=== PATIENT | male | born 1970 | race Caucasian/White ===

== ENCOUNTER 2018-04-09 03:17 | Observation (INO) ==
[2018-04-09 03:43] LABS: Baso # (Auto) 0.2 th/mm3 (0.0-0.2); Baso % (Auto) 1.5 % (0.0-2.0); Eos # (Auto) 0.1 th/mm3 (0.0-0.4); Eos % (Auto) 0.8 % (0.0-4.0); Hematocrit 45.1 % (39.0-51.0); Hemoglobin 14.9 gm/dL (13.0-17.0); Lymph # (Auto) 1.8 th/mm3 (1.0-4.8); Lymph % (Auto) 13.1 % (9.0-44.0); Mean Corpuscular HGB Conc 32.9 % (32.0-36.0); Mean Corpuscular Hemoglobin 28.9 pg (27.0-34.0); Mean Corpuscular Volume 87.8 fL (80.0-100.0); Mean Platelet Volume 9.3 fL (7.0-11.0); Mono # (Auto) 0.7 th/mm3 (0.0-0.9); Mono % (Auto) 5.1 % (0.0-8.0); Neut # (Auto) 10.6 th/mm3 (1.8-7.7); Neut % (Auto) 79.5 % (16.0-70.0); Platelet Count 250 th/mm3 (150-450); Red Blood Count 5.14 mil/mm3 (4.50-5.90); Red Cell Distribution Width 14.3 % (11.6-17.2); White Blood Count 13.4 th/mm3 (4.0-11.0)
--- NOTE | 2018-04-09 03:46 | ED ---
HPI General Chief Complaint: Dizziness Stated Complaint: Dizziness Time Seen by Provider: 04/09/18 03:30 Source: patient Mode of arrival: EMS Limitations: no limitations History of Present Illness HPI Narrative: Patient is a 48-year-old male with history of hypertension, hyperlipidemia, CHF, presents the emergency room with complaints of dizziness. Patient reports that [place] the [place] was [place] the game. Patient reports that he did not feel right and wanted to go home, reports that he walked outside and sat on the bench and had a syncopal episode. When patient awoke, patient reports that he felt as if he was unconscious for about 8 hours but knew it had been a lot less than that. Patient reports that he called for help as he thinks that he may be dehydrated. Patient reports that since he had a similar incident a few months ago and was seen at [facility] where he was admitted for a few days due to renal failure. Reports that he follows with Dr. Grubbs and is fluid restricted. Reports that at that time, he wasn't drinking enough fluids. Patient at this time complains of dizzyness. He describes the dizzyness as "I feel like I'm floating in the air when I walk." Denies any chest pain/sob. Denies fever/chills. No other complaints. Related Data Home Medications Medication Instructions Recorded Confirmed aspirin [Aspir-81] 81 mg PO DAILY 04/09/18 04/09/18 carvedilol 1 tab PO BID 04/09/18 04/09/18 lisinopril 1 tab PO DAILY 04/09/18 04/09/18 simvastatin 1 tab PO QPM 04/09/18 04/09/18 Allergies Allergy/AdvReac Type Severity Reaction Status Date / Time No Known Allergies Allergy Verified 04/09/18 03:28 Review of Systems ROS: all other systems reviewed are negative [facility] Medical History Medical History History of high blood pressure (Acute) History of high cholesterol (Acute) History of pacemaker (Acute) Hx of congestive heart failure (Acute) Social History Social History Substance History: No History of Abuse Smoking Status: Current every day smoker Tobacco Type: Cigars How Often Do You Have a Drink Containing Alcohol: Never Recent Travel in [facility] within the Last 8 Weeks: No Recent Out of Country Travel within the Last 8 Weeks: No Immunization History Tetanus Immunization: Unsure Exam Narrative Exam Narrative: GENERAL: NAD SKIN: Focused skin assessment warm/dry. HEAD: Atraumatic. Normocephalic. EYES: Pupils equal and round. No scleral icterus. No injection or drainage. ENT: No nasal bleeding or discharge. Mucous membranes pink and moist. NECK: Trachea midline. No JVD. CARDIOVASCULAR: Regular rate and rhythm. No murmur appreciated. RESPIRATORY: No accessory muscle use. Clear to auscultation. Breath sounds equal bilaterally. GASTROINTESTINAL: Abdomen soft, non-tender, nondistended. Hepatic and splenic margins not palpable. MUSCULOSKELETAL: No obvious deformities. No clubbing. No cyanosis. No edema. NEUROLOGICAL: Awake and alert. No obvious cranial nerve deficits. Motor grossly within normal limits. Normal speech. CN 2-12 grossly intact with no neurological compromise PSYCHIATRIC: Appropriate mood and affect; insight and judgment normal. Course Initial Documented Vital Signs Temperature 98.0 F 04/09/18 03:23 Pulse Rate 85 04/09/18 03:23 Respiratory Rate 17 04/09/18 03:23 Blood Pressure 111/79 04/09/18 03:23 Pulse Oximetry 95 04/09/18 03:23 Last Documented Vital Signs Temperature 98.0 F 04/09/18 03:23 Pulse Rate 85 04/09/18 03:23 Respiratory Rate 17 04/09/18 03:23 Blood Pressure 111/79 04/09/18 03:23 Pulse Oximetry 95 04/09/18 03:23 Medical Decision Making [facility] Narrative Medical decision making narrative: During the course of the patients emergency department visit, the patients history, examination, and differential diagnosis were reviewed with the patient. The patient was placed on a monitoring analyst with oximetry and frequent blood pressure monitoring. The patient had an IV access obtained and blood work sent for analysis. The patient was initially provided antiver The patients laboratory studies were reviewed and remarkable for: wbc 13.4, hgb 14.9, hct 45.1, platelets 250 inr 1.0 sodium 138, potassium 3.7, chloride 105, bun 16, cr 1.0, glucose 111 trop 0.03 Radiology studies were reviewed and remarkable for ct of head: negative ct of head Patient re-evaluated, patient reports that she is not feeling any better, will obs for syncope workup. Case reviewed with Dr. Staley who accepts pt to service Medical Screen Exam Complete: Yes Emergency Medical Condition: Yes Differential Diagnosis Differential Diagnosis: acs, arrythmia, electrolyte abnormality, ich, cva Medical Records Medical records reviewed: Yes I reviewed the patient's medical records. Lab Data Result diagrams: 04/09/18 03:30 04/09/18 03:30 Lab Results 04/09/18 04/09/18 04/09/18 Range/Units 03:30 03:30 03:30 CBC w Diff Auto diff final WBC 13.4 H (4.0-11.0) th/mm3 RBC 5.14 (4.50-5.90) mil/mm3 Hgb 14.9 (13.0-17.0) gm/dL Hct 45.1 (39.0-51.0) % MCV 87.8 (80.0-100.0) fL MCH 28.9 (27.0-34.0) pg MCHC 32.9 (32.0-36.0) % RDW 14.3 (11.6-17.2) % Plt Count 250 (150-450) th/mm3 MPV 9.3 (7.0-11.0) fL Neut % (Auto) 79.5 H (16.0-70.0) % Lymph % (Auto) 13.1 (9.0-44.0) % Jefferson % (Auto) 5.1 (0.0-8.0) % Eos % (Auto) 0.8 (0.0-4.0) % Baso % (Auto) 1.5 (0.0-2.0) % Neut # (Auto) 10.6 H (1.8-7.7) th/mm3 Lymph # (Auto) 1.8 (1.0-4.8) th/mm3 Jefferson # (Auto) 0.7 (0.0-0.9) th/mm3 Eos # (Auto) 0.1 (0.0-0.4) th/mm3 Baso # (Auto) 0.2 (0.0-0.2) th/mm3 WBC Differential . Differential Comment . PT 10.6 (9.8-11.6) sec INR 1.0 Ratio Sodium 138 (136-145) meq/L Potassium 3.7 (3.5-5.1) meq/L Chloride 105 (98-107) meq/L Carbon Dioxide 24.0 (21.0-32.0) meq/L Anion Gap 9 (5-15) meq/L BUN 16 (7-18) mg/dL Creatinine 1.00 (0.60-1.30) mg/dL Estimated GFR 79 L (>89) mL/min Random Glucose 111 H (74-106) mg/dL Calcium 8.4 L (8.5-10.1) mg/dL Troponin I 0.03 (0.02-0.05) ng/mL Imaging Data Radiologist's impression: Chest X-Ray 04/09/18 03:30 CONCLUSION: Right hilar fullness. Left lungs clear. Pacemaker good position Head CT 04/09/18 03:30 CONCLUSION: 1. Negative CT Head non contrast. . Discharge Plan Discharge Disposition Patient Disposition: ED Admit(ED Internal Use Only) Discharge Condition Condition: Stable Discharge Order Discharge Orders: ED Use Only Admit Order (Routine); Ordered 04/09/18 Ordered By: Asia Gregory Discharge Details Diagnosis: Syncope Physicians Team ED Provider: Asia Gregory Primary Care Provider: Primary Care Miguelangeli,Cynthia Rxs /Orders / Referrals /Forms Prescriptions: No Action carvedilol 6.25 mg Tablet 1 tab PO BID RF: 0 simvastatin 10 mg Tablet 1 tab PO QPM RF: 0 aspirin [Aspir-81] 81 mg Tablet,Delayed Release (Dr/Ec) 81 mg PO DAILY RF: 0 lisinopril 10 mg Tablet 1 tab PO DAILY RF: 0 Status ED Status: With Doctor
[2018-04-09 03:58] LABS: Potassium 3.7 meq/L (3.5-5.1)
[2018-04-09 04:00] LABS: Calcium 8.4 mg/dL (8.5-10.1)
[2018-04-09 04:01] LABS: Prothrombin Time 10.6 sec (9.8-11.6)
[2018-04-09 04:09] LABS: Troponin I 0.03 ng/mL (0.02-0.05)
--- NOTE | 2018-04-09 04:41 | CT ---
EXAM DATE: 04/09/2018 4:08 AM EST AGE/SEX: 48 years / Male INDICATIONS: Dizziness. CLINICAL DATA: This is the patient's initial encounter. Patient reports that signs and symptoms have been present for 1 day and indicates a pain score of 5/10. MEDICAL/SURGICAL HISTORY: . High blood pressure. High cholesterol. Pacemaker. Congestive heart fail ure. . RADIATION DOSE: 58.99 CTDI (mGy) COMPARISON: No prior exams available for comparison. TECHNIQUE: CT of the head without contrast. Using automated exposure control and adjustment of the mA and/or kV according to patient size, radiation dose was kept as low as reasonably achievable to ob tain optimal diagnostic quality images. DICOM format image data is available electronically for revi ew and comparison. FINDINGS: Cerebrum: The ventricles are normal for age. No evidence of midline shift, mass lesion, hemorrhage or acute infarction. No extraaxial fluid collections are seen. Posterior Fossa: The cerebellum and brainstem are intact. The 4th ventricle is midline. The cerebe llopontine angle is unremarkable. Extracranial: The visualized portion of the orbits is intact. Skull: The calvaria is intact. No evidence of skull fracture. CONCLUSION: 1. Negative CT Head non contrast. . Electronically signed by: Luis Eduardo Velázquez MD Board Certified Radiologist 04/09/2018 4:40 AM EST
--- NOTE | 2018-04-09 05:03 | XR ---
EXAM DATE: 04/09/2018 3:49 AM EST AGE/SEX: 48 years / Male INDICATIONS: Cardiac disease. Dizziness. CLINICAL DATA: This is the patient's initial encounter. Patient reports that signs and symptoms have been present for 1 day and indicates a pain score of 0/10. MEDICAL/SURGICAL HISTORY: Congestive heart failure. Pacemaker. COMPARISON: No prior exams available for comparison. FINDINGS: Single view the chest centered the left subclavian multi lead pacer in good position. There is defini te fullness of the right hilum. There is no visible pneumothorax. No significant airspace disease maged ntified. CONCLUSION: Right hilar fullness. Left lungs clear. Pacemaker good position Electronically signed by: Luis Eduardo Velázquez MD Board Certified Radiologist 04/09/2018 5:02 AM EST
[2018-04-09] MEDS: Sod Chloride 0.9% Inj 1,000 ML IV.CONT SCH ×2 (05:42→18:32)
--- NOTE | 2018-04-09 08:59 | P.HPIM ---
History of Present Illness Primary Care Physician: No Primary Care Physician Chief Complaint: Syncope History of Present Illness: 48-year-old male with known history of hypertension , hyperlipidemia, congestive heart failure, pacemaker placement, possible underlying cardiomyopathy who presented to the hospital for recurrent syncope. Patient indicates that a couple years ago he developed severe congestive heart failure and was found to have cardiac abnormalities in was undergoing outpatient management by Dr. Grubbs. Subsequently the patient has had a pacemaker/AICD placement. However he states that approximately every 3-4 months he has episodes of syncope. Last time was 3 months ago where he was admitted to the [facility] for 4 days for evaluation. Patient states that he originally was managed and cared for at [facility], that is where he had his pacemaker placed. Patient has never been to [email or web address] before. He was at the [employer] yesterday playing cards for a prolonged period of time. He states that he did not feel well so he got up and went to a bandage and at approximately 1 PM he states he had a syncopal episode where he passed out for approximately 6 minutes. He initially sat down and then after he came to he was laying on the bed which. He denies any close head injury or fall. He indicates that this does happen to him periodically. Patient denies any chest pain, shortness of breath, dyspnea, extremity edema, abdominal pain, nausea, vomiting, defeating swallowing food, unilateral weakness, ambulation difficulties. EVAC did bring him to the hospital for evaluation and ER physician recommend the patient be observed in the hospital for further evaluation and management. Review of Systems Review of Systems: all other systems reviewed are negative Neurologic: Reports syncope [facility] Medical History Medical History History of high blood pressure (Acute) History of high cholesterol (Acute) Hx of congestive heart failure (Acute) Surgical History Surgical History History of pacemaker (Acute) Social History Social History Substance History: No History of Abuse Second Hand Smoke Exposure: Yes Smoking Status: Former smoker Tobacco Type: Cigars How Often Do You Have a Drink Containing Alcohol: Never Recent Travel in [facility] within the Last 8 Weeks: No Recent Out of Country Travel within the Last 8 Weeks: No Immunization History Tetanus Immunization: Unsure Medications and Allergies Allergies Allergy/AdvReac Type Severity Reaction Status Date / Time No Known Allergies Allergy Verified 04/09/18 03:28 Home Medications Medication Instructions Recorded Confirmed Type aspirin [Aspir-81] 81 mg PO DAILY 04/09/18 04/09/18 History carvedilol 1 tab PO BID 04/09/18 04/09/18 History lisinopril 1 tab PO DAILY 04/09/18 04/09/18 History simvastatin 1 tab PO QPM 04/09/18 04/09/18 History Active Medications: Active Medications Sodium Chloride (Ns Inj) 1,000 mls @ 100 mls/hr IV.CONT .Q10H MEHRAN Last Admin: 04/09/18 05:42 Dose: 100 mls/hr Sodium Chloride (Ns Flush) 2 ml IV.FLUSH PRN PRN PRN Reason: FLUSH AFTER USING IV ACCESS Physical Exam Vital signs: Last Vital Signs Temp 98 F 04/09/18 07:45 Pulse 81 04/09/18 07:45 Resp 18 04/09/18 07:45 BP 97/60 L 04/09/18 07:45 Pulse Ox 95 04/09/18 03:23 Intake & Output 04/07/18 04/08/18 04/09/18 04/10/18 06:59 06:59 06:59 06:59 Weight 123.7 kg Narrative: GENERAL: Well-developed, obese with BMI 37, in no acute distress. alert and orientated HEENT: Head is normocephalic without any lesions or masses noted. Facial features are symmetric. Eyes: Pupils equal round reactive to light. Extraocular muscles are intact. Conjunctivae were clear. Oropharyngeal: Pharynx without any erythema edema. Tongue is midline without deviation. Buccal mucosa is moist without any masses or lesions NECK: Supple without any masses. Trachea midline no deviation. No JVD, no bruits are appreciated CARDIAC: Regular rhythm, regular rate. S1/S2 are heard. No murmurs gallops or rubs. LUNGS: Clear to auscultation bilaterally. No wheeze, rhonchi or rales. No use of accessory muscles on inspiration or expiration. ABDOMEN: Soft, nontender. Nondistended. Bowel sounds heard in all 4 quadrants. No organomegaly or masses. Negative rebound, negative guarding EXTREMITIES: No edema, pulses are equal bilaterally. No cyanosis or clubbing NEUROLOGY: Mood and affect appear appropriate. Cranial nerves II through XII grossly intact. Muscle strength 5/5 in upper and lower extremities bilaterally. Deep tendon reflexes are 2+ in upper and lower extremities bilaterally. Results Labs CBC & Chem 7: 04/10/18 06:35 04/10/18 06:35 Imaging Impressions Chest X-Ray 04/09/18 03:30 CONCLUSION: Right hilar fullness. Left lungs clear. Pacemaker good position Head CT 04/09/18 03:30 CONCLUSION: 1. Negative CT Head non contrast. . Caprini VTE Risk Assessment Caprini VTE Risk Assessment: Moderate/High Risk (score >= 2) Caprini Risk Assessment Model: Point Value = 1 Point Value = 2 Point Value = 3 Point Value = 5 Age 41-60 Minor surgery BMI > 25 kg/m2 Swollen legs Varicose veins or History of unexplained or recurrent spontaneous Oral contraceptives or hormone replacement Sepsis (< 1 month) Serious lung disease, including pneumonia (< 1 month) Abnormal pulmonary function Acute myocardial infarction Congestive heart failure (< 1 month) History of inflammatory bowel disease Medical patient at bed rest Age 61-74 Arthroscopic surgery Major open surgery (> 45 min) Laparoscopic surgery (> 45 min) Malignancy Confined to bed (> 72 hours) Immobilizing plaster cast Central venous access Age >= 75 History of VTE Family history of VTE Factor V Leiden Prothrombin [id number] Lupus anticoagulant Anticardiolipin antibodies Elevated serum homocysteine Heparin-induced thrombocytopenia Other congenital or acquired thrombophilia Stroke (< 1 month) Elective arthroplasty Hip, pelvis, or leg fracture Acute spinal cord injury (< 1 month) Prophylaxis Regimen: Total Risk Factor Score Risk Level Prophylaxis Regimen 0-1 Low Early ambulation 2 Moderate Order ONE of the following: *Sequential Compression Device (SCD) *Heparin 5000 units SQ BID 3-4 Higher Order ONE of the following medications: *Heparin 5000 units SQ TID *Enoxaparin/Lovenox 40 mg SQ daily (WT < 150 kg, CrCl > 30 mL/min) *Enoxaparin/Lovenox 30 mg SQ daily (WT < 150 kg, CrCl > 10-29 mL/min) *Enoxaparin/Lovenox 30 mg SQ BID (WT < 150 kg, CrCl > 30 mL/min) AND/OR *Sequential Compression Device (SCD) 5 or more Highest Order ONE of the following medications: *Heparin 5000 units SQ TID (Preferred with Epidurals) *Enoxaparin/Lovenox 40 mg SQ daily (WT < 150 kg, CrCl > 30 mL/min) *Enoxaparin/Lovenox 30 mg SQ daily (WT < 150 kg, CrCl > 10-29 mL/min) *Enoxaparin/Lovenox 30 mg SQ BID (WT < 150 kg, CrCl > 30 mL/min) AND *Sequential Compression Device (SCD) Assessment and Plan Plan Syncopal episode -Recurrent syncope, patient had multiple evaluations and workups done at different hospitals to include [facility] -CT scan was unremarkable for any acute abnormality -We will need to have pacemaker interrogated -Continue to trend cardiac enzymes rule out any acute coronary event -Obtain echocardiogram and carotid ultrasound -Obtain orthostatic vitals -Obtain further studies to include urinalysis, urine drug screen, alcohol level , TSH Hypertension, hyperlipidemia, cardiomyopathy, congestive heart failure -Continue home medications DVT prevention -Subcutaneous heparin H&P: Quality VTE Deep Vein Thrombosis/Pulmonary Embolism Present on Admission: No
[2018-04-09] MEDS: Heparin - SQ 10,000 UNITS/ML Vial SQ SCH ×2 (10:37→21:11)
[2018-04-09] MEDS: Carvedilol 6.25 MG Tablet PO SCH ×2 (10:37→21:12)
[2018-04-09] MEDS: Lisinopril 10 MG Tablet PO SCH (10:37)
--- NOTE | 2018-04-09 12:52 | US ---
EXAM DATE: 04/09/2018 12:42 PM EST AGE/SEX: 48 years / Male INDICATIONS: Syncope. CLINICAL DATA: This is the patient's initial encounter. Patient reports that signs and symptoms have been present for 1 day and indicates a pain score of 0/10. MEDICAL/SURGICAL HISTORY: Congestive heart failure. Hypertension. Hypercholesterolemia. Pacem ramón. COMPARISON: . VELOCITY PARAMETERS: ICA/CCA Ratio: Right 0.91 , Left 0.56 ICA: Right 84 cm/sec, Left 63 cm/sec CCA: Right 93 cm/sec, Left 112 cm/sec ECA: Right 78 cm/sec, Left 44 cm/sec Vertebral: Right 35 cm/sec antegrade, Left 39 cm/sec antegrade FINDINGS: Right Carotid: No significant plaque is visualized.The waveforms are within normal limits. Left Carotid: No significant plaque is visualized. The waveforms are within normal limits. Other: None. CONCLUSION: Negative carotid ultrasound examination. Electronically signed by: Harpreet Camacho MD Board Certified Radiologist 04/09/2018 12:50 PM EST
--- NOTE | 2018-04-09 15:46 | ECHRPT ---
Indication: Syncope and collapse CONCLUSIONS The left ventricular systolic function is severely reduced with an estimated ejection fraction in th e range of 30-35%. Wall thickness is normal. Normal left ventricular size. Moderate mitral valve regurgitation. There is moderate tricuspid regurgitation. The estimated pulmonary arterial pressure is 47.7 mmHg. very technically limited study BP: / HR: Rhythm: MEASUREMENTS (Male / Female) Normal Values Technical Quality: 2D ECHO LV Diastolic Diameter PLAX 6.3 cm 4.2 - 5.9 / 3.9 - 5.3 cm LV Systolic Diameter PLAX 5.4 cm IVS Diastolic Thickness 1.3 cm 0.6 - 1.0 / 0.6 - 0.9 cm LVPW Diastolic Thickness 1.3 cm 0.6 - 1.0 / 0.6 - 0.9 cm LV Relative Wall Thickness 0.4 LVOT Diameter 2.3 cm M-MODE Aortic Root Diameter MM 3.9 cm LA Systolic Diameter MM 3.3 cm LA Ao Ratio MM 0.8 AV Cusp Separation MM 2.7 cm DOPPLER MR Peak Velocity 511.5 cm/s MR Peak Gradient 104.7 mmHg LV E' Lateral Velocity 5.6 cm/s LV E' Septal Velocity 7.0 cm/s TR Peak Velocity 307.0 cm/s TR Peak Gradient 37.7 mmHg Right Atrial Pressure 10.0 mmHg Pulmonary Artery Systolic Pressu 47.7 mmHg Right Ventricular Systolic Press 47.7 mmHg PV Peak Velocity 103.0 cm/s PV Peak Gradient 4.2 mmHg FINDINGS LEFT VENTRICLE The left ventricular systolic function is severely reduced with an estimated ejection fraction in th e range of 30-35%. Wall thickness is normal. Normal left ventricular size. RIGHT VENTRICLE Normal right ventricular size and systolic function. LEFT ATRIUM The left atrial size is normal. RIGHT ATRIUM The right atrial size is normal. ATRIAL SEPTUM Normal atrial septal thickness without atrial level shunting by limited color doppler interrogation. AORTA The aortic root and proximal ascending aorta are normal in size on limited imaging. MITRAL VALVE Moderate mitral valve regurgitation. AORTIC VALVE Trileaflet aortic valve. No aortic valve stenosis or regurgitation. TRICUSPID VALVE There is moderate tricuspid regurgitation. The estimated pulmonary arterial pressure is 47.7 mmHg. PULMONARY VALVE No pulmonary valve regurgitation or stenosis. VESSELS The inferior vena cava is normal in size. PERICARDIUM No pericardial effusion. Elio Chambers MD, FACC, [facility] (Electronically Signed) Final Date:09 April 2018 15:45
[2018-04-09 16:46] LABS: Bilirubin,Urine Negative (Negative); Clarity,Urine Clear (Clear); Color,Urine Yellow (Yellw/Straw); Glucose,Urine (UA) Negative (Negative); Leukocyte Esterase,Urine Negative (Negative); Nitrite,Urine Negative (Negative); PH,Urine 7.5 (5.0-8.5)
[2018-04-09 17:02] LABS: Amphetamine Screen,Urine Neg (Neg)
[2018-04-09 17:03] LABS: Barbiturate Screen,Urine Neg (Neg)
[2018-04-09 17:06] LABS: Cannabinoid Screen,Urine Neg (Neg)
[2018-04-09 17:07] LABS: Cocaine Screen,Urine Neg (Neg)
[2018-04-09 17:22] LABS: Opiate Screen,Urine Neg (Neg)
[2018-04-09 17:53] LABS: Mucus,Urine Rare /lpf (Occasional)
[2018-04-09 22:13] VITALS: RESP 18
--- NOTE | 2018-04-10 01:55 | ECG ---
Date Performed: 04/09/2018 Time Performed: 05:24:05 PTAGE: 48 years EKG: ELECTRONIC VENTRICULAR PACEMAKER ABNORMAL RHYTHM ECG NO PREVIOUS TRACING DOCTOR: Robi Lundy Interpretating Date/Time 04/10/2018 01:53:48
--- NOTE | 2018-04-10 02:07 | ECG ---
Date Performed: 04/09/2018 Time Performed: 09:22:51 PTAGE: 48 years EKG: ELECTRONIC VENTRICULAR PACEMAKER ABNORMAL RHYTHM ECG PREVIOUS TRACING : 04/09/2018 05.24 Since the previous tracing, no significant change noted DOCTOR: Robi Lundy Interpretating Date/Time 04/10/2018 02:05:48
[2018-04-10 06:52] LABS: Baso # (Auto) 0.2 th/mm3 (0.0-0.2); Baso % (Auto) 1.9 % (0.0-2.0); Eos # (Auto) 0.2 th/mm3 (0.0-0.4); Eos % (Auto) 1.7 % (0.0-4.0); Hematocrit 41.8 % (39.0-51.0); Hemoglobin 13.9 gm/dL (13.0-17.0); Lymph # (Auto) 1.8 th/mm3 (1.0-4.8); Lymph % (Auto) 18.1 % (9.0-44.0); Mean Corpuscular HGB Conc 33.3 % (32.0-36.0); Mean Corpuscular Hemoglobin 29.7 pg (27.0-34.0); Mean Platelet Volume 9.3 fL (7.0-11.0); Mono # (Auto) 0.5 th/mm3 (0.0-0.9); Mono % (Auto) 5.5 % (0.0-8.0); Neut % (Auto) 72.8 % (16.0-70.0); Platelet Count 197 th/mm3 (150-450); White Blood Count 9.7 th/mm3 (4.0-11.0)
[2018-04-10 07:01] LABS: Potassium 4.2 meq/L (3.5-5.1)
[2018-04-10 07:05] LABS: Calcium 8.3 mg/dL (8.5-10.1); Carbon Dioxide 26.7 meq/L (21.0-32.0)
[2018-04-10 08:32] VITALS: BP 119/65; PULSE 71; TEMP 96.8; O2SAT 93
[2018-04-10] MEDS: Sod Chloride 0.9% Inj 1,000 ML IV.CONT SCH (08:33)
[2018-04-10] MEDS: Carvedilol 6.25 MG Tablet PO SCH (08:34)
[2018-04-10] MEDS: Lisinopril 10 MG Tablet PO SCH (08:34)
[2018-04-10] MEDS: Heparin - SQ 10,000 UNITS/ML Vial SQ SCH (08:34)
--- NOTE | 2018-04-10 10:08 | P.PNIM ---
Subjective Interval history: 48-year-old male who is seen examined today for follow-up on possible syncopal episode. Doing well at this time. Has not had any recurrent loss of consciousness, syncope, symptoms. Patient is very eager to go home. Workup is unremarkable. Vital signs are stable. Patient remains afebrile. Physical Exam Vital signs: Last Vital Signs Temp 96.8 F L 04/10/18 08:00 Pulse 71 04/10/18 08:00 Resp 18 04/10/18 08:00 BP 119/65 04/10/18 08:00 Pulse Ox 93 L 04/10/18 08:00 Intake & Output 04/08/18 04/09/18 04/10/18 04/11/18 06:59 06:59 06:59 06:59 Intake Total 240 / 240 2810 / 2810 Output Total 2200 / 2200 Balance 240 / 240 610 / 610 Weight 123.7 kg 124.7 kg Narrative: GENERAL: Well-developed, obese with BMI 37, in no acute distress. alert and orientated HEENT: Head is normocephalic without any lesions or masses noted. Facial features are symmetric. Eyes: Extraocular muscles are intact. Conjunctivae were clear. NECK: Supple without any masses. Trachea midline no deviation. No JVD, CARDIAC: Regular rhythm, regular rate. S1/S2 are heard. No murmurs gallops or rubs. LUNGS: Clear to auscultation bilaterally. No wheeze, rhonchi or rales. No use of accessory muscles on inspiration or expiration. ABDOMEN: Soft, nontender. Nondistended. Bowel sounds heard in all 4 quadrants. No organomegaly or masses. Negative rebound, negative guarding EXTREMITIES: No edema, pulses are equal bilaterally. No cyanosis or clubbing NEUROLOGY: Mood and affect appear appropriate. Cranial nerves II through XII grossly intact. Moving all extremities, speech is clear Results Labs CBC & Chem 7: 04/10/18 06:35 04/10/18 06:35 Imaging Imaging: Impressions Carotid Doppler Study 04/09/18 00:00 CONCLUSION: Negative carotid ultrasound examination. Assessment and Plan Plan Syncopal episode -Recurrent syncope, patient had multiple evaluations and workups done at different hospitals to include [facility] -CT scan was unremarkable for any acute abnormality -Pacemaker was interrogated and did not indicate any acute abnormalities or episodes -Serial cardiac enzymes were performed and were unremarkable for any abnormality. Acute coronary event was ruled out -Carotid ultrasound was unremarkable for any abnormality -Orthostatic vitals were normal -Echocardiogram actually shows improvement of his ejection fraction of 30-35%. Moderate tricuspid regurgitation, PA peak pressure 47.7 -Further studies with urine drug screen were negative, alcohol level was negative, TSH was normal, urinalysis was clear -Holter monitor in place, follow-up with outpatient network coordinator for evaluation -Discussed with patient extensively. Patient does have an appointment with a new network coordinator in a week. Given that he has a negative workup at this time. No reoccurrence. Patient is eager to go home. We will plan discharge home accordingly with close outpatient monitoring by new network coordinator in 1 week. Patient does understand and acknowledged portance of outpatient follow-up. Hypertension, hyperlipidemia, cardiomyopathy, congestive heart failure -Continue home medications DVT prevention -Subcutaneous heparin Discharge planning Discharge home in stable condition Activity: Ad eva. Diet: Healthy heart diet Medication per medication reconciliation Follow-up with primary medical doctor in 1 week Progress Note: Quality VTE Deep Vein Thrombosis/Pulmonary Embolism Present on Admission: No
== END 2018-04-10 10:41 | disposition home or self-care (01) ==
LOC: PHEDA 03:17 → PHED 03:17 → PH3 06:08
PROVIDERS: ADMIT Hospitalist; ATTEND Hospitalist
CPT/HCPCS: 70450; 71010; 71045; 80048; 80307; 81001; 84443; 84484; 85025; 85610; 87040; 93005; 93306; 93880; 99285; G0378; J1644; J7030